=== PATIENT | female | born 1980 | race African-American/Black ===

== ENCOUNTER 2017-04-23 11:02 | Emergency (ER) | payer BC ==
[~2017-04-23] VITALS: Wt 77.0 kg
[~2017-04-23 11:02] MED LIST: CEPH-443 PO
[2017-04-23 11:49] LABS: BASOPHILS % 0.6 % (0.0-2.0); EOSINOPHILS # 0.2 10^3/ul (0.0-0.5); EOSINOPHILS % 3.3 % (0.0-7.0); HEMATOCRIT 33.7 % (37.0-47.0); HEMOGLOBIN 11.1 g/dl (12.0-16.0); LYMPHOCYTES # 2.1 10^3/ul (0.8-2.9); LYMPHOCYTES % 38.8 % (15.0-51.0); MEAN CORPUSCULAR HEMOGLOBIN 28.5 pg (29.0-33.0); MEAN CORPUSCULAR HGB CONC 32.9 g/dl (32.0-37.0); MEAN CORPUSCULAR VOLUME 86.4 fl (82.0-101.0); MEAN PLATELET VOLUME 9.6 fl (7.4-10.4); MONOCYTE # 0.3 10^3/ul (0.3-0.9); MONOCYTES % 5.2 % (0.0-11.0); NEUTROPHILS % 51.9 % (39.0-77.0); PLATELET COUNT 281 10^3/UL (140-415); RED CELL DISTRIBUTION WIDTH 14.1 % (11.5-14.5); WHITE BLOOD COUNT 5.4 10^3/ul (4.8-10.8)
[2017-04-23 12:17] LABS: INR 0.96; PROTIME 12.8 Sec (12.2-14.2)
[2017-04-23 12:18] LABS: PARTIAL THROMBOPLASTIN TIME 29.2 Sec (25.0-35.0)
[2017-04-23 12:23] LABS: ANION GAP 16 (8-16); BLOOD UREA NITROGEN 12 mg/dl (7-20); CALCIUM 8.9 mg/dl (8.4-10.2); CARBON DIOXIDE 24 mmol/L (21-31); CHLORIDE 104 mmol/L (97-110); CREATININE 0.91 mg/dl (0.44-1.00); GLUCOSE 81 mg/dl (70-220); POTASSIUM 3.9 mmol/L (3.5-5.1); SODIUM 140 mmol/L (135-144)
[2017-04-23 13:00] VITALS: BP 116/86; PULSE 77; RESP 18; TEMP 99
[2017-04-23 13:00] LABS: B-TYPE NATRIURETIC PEPTIDE < 11 PG/ML (0-125); TROPONIN-I < 0.012 ng/ml (0.00-0.12)
[2017-04-23 13:03] LABS: ADD UMIC NO; UR ASCORBIC ACID 40 mg/dL (NEGATIVE); UR BACTERIA FEW /HPF (NONE SEEN); UR BILIRUBIN (Dip) NEGATIVE (NEGATIVE); UR BLOOD (Dip) NEGATIVE (NEGATIVE); UR CLARITY SLIGHTLY CLOUDY (CLEAR); UR COLOR YELLOW (YELLOW); UR GLUCOSE (Dip) NEGATIVE (NEGATIVE); UR KETONES (Dip) NEGATIVE (NEGATIVE); UR LEUKOCYTE ESTERASE (Dip) NEGATIVE Leu/ul (NEGATIVE); UR MUCUS FEW /HPF (NONE SEEN); UR NITRITE (Dip) NEGATIVE (NEGATIVE); UR RBC 0 /HPF (0-5); UR SPECIFIC GRAVITY (Dip) 1.023 (1.003-1.030); UR SQUAMOUS EPITHELIAL CELL FEW /HPF (FEW); UR TOTAL PROTEIN (Dip) NEGATIVE (NEGATIVE); UR UROBILINOGEN (Dip) NEGATIVE (NEGATIVE)
[2017-04-23] MEDS ORDERED: ALPRAZOLAM 0.25 MG TAB PO ONE (13:30)
[2017-04-23] MEDS ORDERED: CLOPIDOGREL 75 MG TAB PO ONE (13:30)
--- NOTE | 2017-04-23 13:32 | RADRPT ---
Echocardiogram Report Patient Name: SKYLAR NICHOLAS Gender: Female Date: 1980 Study Date: 23-Apr-2017 Vest Finisher: Harsh Juan EVELIO Location: [facility] Ref. Physician: LAUREANO NOBLES Quality: Good Procedures: Transthoracic echocardiogram with complete 2D, M-Mode, and doppler examination. Indications: Chest Pain. Palpitations. 2D/M Mode Doppler Measurement Value Normal Ranges Measurement Value Normal Ranges LVIDd 2D 4.9 3.5 - 5.6 cm AV Peak Jose 0.9 m/sec LVIDs 2D 3.1 2.1 - 4.1 cm AV Peak PG 3.2 mmHg LVPWd 2D 0.8 0.6 - 1.1 cm LVOT Peak Jose 0.8 m/sec IVSd 2D 0.9 0.6 - 1.1 cm LVOT Peak PG 2.8 mmHg AoR Diam 2D 3.3 2.0 - 3.7 cm MV E Peak Jose 0.7 m/sec EDV 2D 114.6 cm3 MV A Peak Jose 0.6 m/sec ESV 2D 30.1 cm3 MV E/A 1.1 LA Dimen 2D 3.4 2.3 - 4.0 cm MV Decel Time 244 msec MV Decel [place] 3 MV E/A 1.1 Findings Left Ventricle: Normal left ventricular systolic function. Normal left ventricular cavity size. Normal left ventricular wall thickness. Ejection fraction is visually estimated at 60 %. Tissue Doppler/Mitral Doppler indices are within normal limits. Right Ventricle: Normal right ventricular size. Normal right ventricular systolic function. Left Atrium: The left atrium is normal in size. Right Atrium: The right atrium is normal in size. Mitral Valve: Normal appearance and function of the mitral valve with trace physiologic regurgitation. Aortic Valve: Normal appearance of the aortic valve. No significant aortic stenosis or insufficiency. Tricuspid Valve: Normal appearance and function of the tricuspid valve with trace physiologic regurgitation. Pulmonic Valve: Normal pulmonic valve appearance. Pericardium: Normal pericardium with no significant pericardial effusion. Aorta: Normal aortic root. IVC: Normal size and normal respiratory collapse consistent with normal right atrial pressure. Conclusions Normal left ventricular systolic function. Normal left ventricular cavity size. Normal left ventricular wall thickness. Ejection fraction is visually estimated at 60 %. Tissue Doppler/Mitral Doppler indices are within normal limits. Normal right ventricular size. Normal right ventricular systolic function. The left atrium is normal in size. The right atrium is normal in size. No significant valvular stenosis or regurgitation seen. Normal pericardium with no significant pericardial effusion. Electronically Signed By: Richie Meyer 23-Apr-2017 13:31:44 -0700 Patient Name: SKYLAR NICHOLAS Study Date: 23-Apr-2017 [id number]
--- NOTE | 2017-04-23 14:31 | RADRPT ---
PROCEDURE: XR Chest. CLINICAL INDICATION: Chest pain TECHNIQUE: Single frontal chest x-ray. COMPARISON: None. FINDINGS: No acute infiltrate, pleural effusion or pneumothorax is identified. Cardiomediastinal silhouette i s within normal limits. The osseous structures are unremarkable. IMPRESSION: 1. No evidence of acute cardiopulmonary process. RPTAT: QQ .Richard Abreu MD, MD Date Time Electronically viewed and signed by .Richard Abreu MD, on 04/23/2017 14:30 .R/
--- NOTE | 2017-04-23 16:01 | ERD ---
ER Documentation Chief Complaint Date/Time DATE: 04/23/17 TIME: 15:56 Chief Complaint PALPITATIONS, CHEST WALL PAIN HPI This 36-year-old female presents emergency room for intermittent palpitations for the last week as well as sharp intermittent substernal chest pain that began today. She has no other cardiac risk factors. Occasional shortness of breath with none currently. She has no nausea vomiting peer ROS All systems reviewed and are negative except as per history of present illness. Medications Home Meds Active Scripts Cephalexin* (Keflex*) 500 Mg Capsule, 500 MG PO QID for 5 Days, CAP Prov:KODAK ADHIKARI PA-C 06/24/15 Allergies Allergies: Coded Allergies: Aspirin (Verified Allergy, Mild, EYE SWELLING, 06/05/08) PMhx/Soc History of Surgery: Yes (CSX1) Anesthesia Reaction: No Hx Neurological Disorder: No Hx Respiratory Disorders: Yes (Asthma) Hx Cardiac Disorders: No Hx Psychiatric Problems: No Hx Miscellaneous Medical Probl: Yes (chronic back pain ) Hx Alcohol Use: No Hx Substance Use: No Hx Tobacco Use: No Smoking Status: Never smoker Physical Exam Vitals Vital Signs Date Time Temp Pulse Resp B/P Pulse Ox O2 Delivery O2 Flow Rate FiO2 04/23/17 13:00 99.0 77 18 116/86 100 Room Air 04/23/17 11:06 99.6 91 17 127/84 100 Physical Exam Const: [] No distress Head: Atraumatic Eyes: Normal Conjunctiva ENT: Normal External Ears, Nose and Mouth. Neck: Full range of motion..~ No meningismus. Resp: Clear to auscultation bilaterally Cardio: Regular rate and rhythm, no murmurs Abd: Soft, non tender, non distended. Normal bowel sounds Skin: No petechiae or rashes Back: No midline or flank tenderness Ext: No cyanosis, or edema Neur: Awake and alert Psych: Normal Mood and Affect Result Diagram: 04/23/17 1140 04/23/17 1140 Results 24 hrs Laboratory Tests Test 04/23/17 11:40 04/23/17 12:30 White Blood Count 5.410^3/ul Red Blood Count 3.9010^6/ul Hemoglobin 11.1g/dl Hematocrit 33.7% Mean Corpuscular Volume 86.4fl Mean Corpuscular Hemoglobin 28.5pg Mean Corpuscular Hemoglobin Concent 32.9g/dl Red Cell Distribution Width 14.1% Platelet Count 93441^3/UL Mean Platelet Volume 9.6fl Neutrophils % 51.9% Lymphocytes % 38.8% Monocytes % 5.2% Eosinophils % 3.3% Basophils % 0.6% Nucleated Red Blood Cells % 0.0/100WBC Neutrophils # (Manual) 310^3/ul Lymphocytes # 2.110^3/ul Monocytes # 0.310^3/ul Eosinophils # 0.210^3/ul Basophils # 0.010^3/ul Nucleated Red Blood Cells # 0.010^3/ul Prothrombin Time 12.8Sec Prothrombin Time Ratio 1.0 INR International Normalized Ratio 0.96 Activated Partial Thromboplast Time 29.2Sec Sodium Level 140mmol/L Potassium Level 3.9mmol/L Chloride Level 104mmol/L Carbon Dioxide Level 24mmol/L Anion Gap 16 Blood Urea Nitrogen 12mg/dl Creatinine 0.91mg/dl Glucose Level 81mg/dl Calcium Level 8.9mg/dl Troponin I < 0.012ng/ml B-Type Natriuretic Peptide < 11PG/ML Urine Color YELLOW Urine Clarity SLIGHTLY CLOUDY Urine pH 5.0 Urine Specific [place] 1.023 Urine Ketones NEGATIVEmg/dL Urine Nitrite NEGATIVEmg/dL Urine Bilirubin NEGATIVEmg/dL Urine Urobilinogen NEGATIVEmg/dL Urine Leukocyte Esterase NEGATIVELeu/ul Urine Microscopic RBC 0/HPF Urine Microscopic WBC 0/HPF Urine Squamous Epithelial Cells FEW/HPF Urine Bacteria FEW/HPF Urine Mucus FEW/HPF Urine Hemoglobin NEGATIVEmg/dL Urine Glucose NEGATIVEmg/dL Urine Total Protein NEGATIVEmg/dl Current Medications Medications (Trade) Dose Ordered Sig/Rosana Route PRN Reason Start Time Stop Time Status Last Admin Dose Admin Alprazolam (Xanax) 0.25 mg ONCE ONCE PO 04/23/17 13:30 04/23/17 13:31 DC 04/23/17 13:42 Clopidogrel Bisulfate (plaVIX) 75 mg ONCE ONCE PO 04/23/17 13:30 04/23/17 13:31 DC Procedures/MDM 36-year-old female with palpitations with occasional lightheadedness and shortness of breath as well as chest pain today. Cardiac workup was performed including echocardiogram. Patient has no cardiac abnormalities whatsoever. I feel safe discharging with primary care follow-up and return precautions currently. She was given a 0.25 mg Xanax in the ER. This did help with her symptoms. Possible anxiety GERD or other etiologies of her palpitations and chest pain EKG interpretation: Normal sinus rhythm rate of 72, normal axis, no ST or T- wave changes concerning for acute ischemia. Normal EKG Chronic monitor interpretation: Normal sinus without arrhythmia Chest x-ray interpretation: See no acute process. See no vitamin Sykes, no pneumothorax, no infiltrates, no pulmonary edema, no fractures Departure Diagnosis: Primary Impression: Chest pain Additional Impressions: Palpitations Anemia Condition: Stable Patient Instructions: Chest Pain, Uncertain Cause, Palpitations Additional Instructions: Call your primary care doctor TOMORROW for an appointment during the next 2-3 days.See the doctor sooner or return here if your condition worsens before your appointment time. LAUREANO NOBLES DO Apr 23, 2017 16:01
== END 2017-04-23 16:06 | disposition home or self-care (01) ==
LOC: E/R 11:02
DX: R07.89 Other chest pain (principal); D64.9 Anemia, unspecified; J45.909 Unspecified asthma, uncomplicated
CPT/HCPCS: 36415; 71010; 80048; 81001; 83880; 84484; 85025; 85610; 85730; 93306; Z7502; Z7610; 81003; 93005

== ENCOUNTER 2019-02-11 08:20 | Emergency (ER) | payer BC ==
[~2019-02-11] VITALS: Ht 162.6 cm; Wt 80.6 kg
[2019-02-11 08:22] VITALS: BP 136/76; PULSE 90; RESP 16; Ht 162.6 cm; Wt 80.6 kg
--- NOTE | 2019-02-11 09:09 | ERD ---
ER Documentation Chief Complaint Chief Complaint sent by pmd for low Hb 7.2 HPI 38-year-old female sent by her primary care doctor, Dr. Fernandes, for low hemoglobin. Patient states that for the past 2 years she has been having heavy periods secondary to fibroids. She was complaining of fatigue to her primary care doctor, so labs were done in December showing anemia with a hemoglobin of 8.5. Repeat blood tests were done yesterday showing a drop in her hemoglobin to 7.2. She was told to go to the ER for blood transfusion. Patient states that she has had progressive generalized fatigue with shortness of breath when exerting herself. Denies any palpitations or chest pain. No syncopal episodes. No headache. She does occasionally feel lightheaded. She has also been complaining of numbness and tingling to her face, right arm, and lower extremities intermittently for the past 3 years as well. She had an extensive work-up done recently which did not show any other abnormalities in her blood work. ROS All systems reviewed and are negative except as per history of present illness. Medications Home Meds Active Scripts Cephalexin* (Keflex*) 500 Mg Capsule, 500 MG PO QID for 5 Days, CAP Prov:KODAK ADHIKARI PA-C 06/24/15 Allergies Allergies: Coded Allergies: Aspirin (Verified Allergy, Mild, EYE SWELLING, 06/05/08) PMhx/Soc History of Surgery: Yes (CSX1) Anesthesia Reaction: No Hx Neurological Disorder: No Hx Respiratory Disorders: Yes (Asthma) Hx Cardiac Disorders: No Hx Psychiatric Problems: No Hx Miscellaneous Medical Probl: Yes (chronic back pain, fibroids) Hx Alcohol Use: No Hx Substance Use: No Hx Tobacco Use: No FmHx Family History: No diabetes Physical Exam Vitals Vital Signs Date Temp Pulse Resp B/P (MAP) Pulse Ox O2 O2 Flow FiO2 Time Delivery Rate 02/11/19 98.6 90 16 136/76 98 08:22 (96) Physical Exam Const: No acute distress, well-appearing, nontoxic Head: Atraumatic Eyes: Somewhat pale conjunctiva ENT: Normal External Ears, Nose and Mouth. Neck: Full range of motion. No meningismus. Resp: No tachypnea. Speaking in full sentences without respiratory distress. Clear to auscultation bilaterally Cardio: Regular rate and rhythm, no murmurs. 2+ distal pulses Abd: Soft, non tender, non distended. Normal bowel sounds Skin: No petechiae or rashes Back: No midline or flank tenderness Ext: No cyanosis, or edema Neur: Awake and alert, normal speech, no facial asymmetry, cranial nerves intact, strength and sensations intact in all 4 extremities. Normal gait. Psych: Normal Mood and Affect Result Diagram: 02/11/19910 Results 24 hrs Laboratory Tests Test 02/11/19 09:11 02/11/19 09:49 White Blood Count 4.7 10^3/ul Red Blood Count 3.70 10^6/ul Hemoglobin 7.8 g/dl Hematocrit 27.2 % Mean Corpuscular Volume 73.5 fl Mean Corpuscular Hemoglobin 21.1 pg Mean Corpuscular Hemoglobin Concent 28.7 g/dl Red Cell Distribution Width 19.6 % Platelet Count 177 10^3/UL Mean Platelet Volume 9.2 fl Immature Granulocytes % 0.400 % Neutrophils % 53.2 % Lymphocytes % 34.3 % Monocytes % 6.4 % Eosinophils % 5.1 % Basophils % 0.6 % Nucleated Red Blood Cells % 0.0 /100WBC Immature Granulocytes # 0.020 10^3/ul Neutrophils # 2.5 10^3/ul Lymphocytes # 1.6 10^3/ul Monocytes # 0.3 10^3/ul Eosinophils # 0.2 10^3/ul Basophils # 0.0 10^3/ul Nucleated Red Blood Cells # 0.0 10^3/ul Prothrombin Time 12.8 Sec Prothrombin Time Ratio 1.0 INR International Normalized Ratio 0.95 Activated Partial Thromboplast Time 31.7 Sec POC Beta HCG, Qualitative NEGATIVE Procedures/MDM EMERGENT LABS AND DIAGNOSTIC STUDIES: Lab Results above were reviewed and interpreted by me. CBC: Borderline leukopenia. anemia negative Coags unremarkable, within normal limits without evidence of coagulopathy 12-lead EKG was interpreted by Aixa Ojeda MD: Normal Sinus Rhythm Normal axis Normal intervals No acute ST or T wave changes suggestive of acute ischemia or STEMI. Initial Nursing notes reviewed. Previous Medical Records requested via the Electronic Health Record. EMERGENCY DEPARTMENT COURSE / MEDICAL DECISION MAKING: Patient presenting for symptomatic anemia. Vitals are stable. She has no active bleeding at this time. I discussed the risks and benefits with the patient of blood transfusion. At this time, her hemoglobin is above 7 and she has no active bleeding. I do not think that she requires a blood transfusion. Patient is agreeable with this plan. She already has a prescription for ferrous sulfate given by her primary care doctor. I recommended she start this as soon as possible and follow-up with her primary care doctor within the next 2 to 3 months for repeat CBC. I also recommended follow-up with sharepoint application developer to address her fibroids that are likely causing her anemia. Return precautions discussed. All questions answered. Provided with copies of results from today. Patient's blood pressure was elevated (>120/80) but appears stable without evid ence of hypertensive emergency or urgency. The patient was counseled about the risks of hypertension and urged to pursue outpatient monitoring and therapy within a week with their primary care physician. Departure Diagnosis: Primary Impression: Iron deficiency anemia Iron deficiency anemia type: chronic blood loss Qualified Codes: D50.0 - Iron deficiency anemia secondary to blood loss (chronic) Additional Impression: Heavy menses Menorrahagia type: with regular cycle Qualified Codes: N92.0 - Excessive and frequent menstruation with regular cycle Condition: Stable ARISTIDES OJEDA MD Feb 11, 2019 09:09
== END 2019-02-11 10:00 | disposition home or self-care (01) ==
LOC: E/R 08:20
DX: D50.0 Iron deficiency anemia secondary to blood loss (chronic) (principal); N92.0 Excessive and frequent menstruation with regular cycle; J45.909 Unspecified asthma, uncomplicated
CPT/HCPCS: 81025; 85025; 85610; 85730; 93005; Z7502